=== PATIENT | male | born 1955 | race Caucasian/White ===

== ENCOUNTER → 2021-10-13 | Outpatient (CLI) | payer MEDICARE | LOC: KOH-I 09-30 11:15 | DX: M25.561 Pain in right knee (principal); M17.11 Unilateral primary osteoarthritis, right knee; M94.261 Chondromalacia, right knee; S83.281A Other tear of lateral meniscus, current injury, right knee, initial encounter; S83.241A Other tear of medial meniscus, current injury, right knee, initial encounter; X58.XXXA Exposure to other specified factors, initial encounter | CPT/HCPCS: 73721 ==

== ENCOUNTER → 2021-10-21 | Outpatient (CLI) | payer MEDICARE | LOC: HEART 5 15:04 | DX: R05.3 Chronic cough (principal); R06.02 Shortness of breath; R06.2 Wheezing | CPT/HCPCS: 94010; 94729; 95012 ==

== ENCOUNTER → 2022-03-24 | Outpatient (CLI) | payer MEDICARE, BC | LOC: KOH-I 10:20 | DX: F17.210 Nicotine dependence, cigarettes, uncomplicated (principal); R91.1 Solitary pulmonary nodule | CPT/HCPCS: 71271 ==